=== PATIENT | male | born 2000 | race Caucasian/White ===

== ENCOUNTER 2021-10-14 18:46 | Day surgery (SDC) | payer OTHER, SELFPAY ==
[2021-10-14] MEDS ORDERED: Succinylcholine 200 MG/10 ml SYRINGE FS ONE (22:36)
[2021-10-14] MEDS ORDERED: Lidocaine 1% PF 5 ML VIAL ONE (22:36)
[2021-10-14] MEDS ORDERED: PROPOFOL 200 MG/20 ML VIAL ONE (22:36)
[2021-10-14] MEDS ORDERED: Fentanyl 100 MCG/2 ML VIAL ONE (22:47)
== END 2021-10-15 00:17 | disposition home or self-care (01) ==
LOC: ERS 18:46 → SDC/OP 22:28
PROVIDERS: ATTEND Internal Medicine Gastroenterology
PROC: 0DB58ZX Excision of Esophagus, Via Natural or Artificial Opening Endoscopic, Diagnostic (ICD-10-PCS; principal; 2021-10-14)
PROC: 0DC18ZZ Extirpation of Matter from Upper Esophagus, Via Natural or Artificial Opening Endoscopic (ICD-10-PCS; principal; 2021-10-14)
PROC: 0DB78ZX Excision of Stomach, Pylorus, Via Natural or Artificial Opening Endoscopic, Diagnostic (ICD-10-PCS; principal; 2021-10-14)
DX: T18.198A Other foreign object in esophagus causing other injury, initial encounter (principal); K22.70 Barrett's esophagus without dysplasia; K31.89 Other diseases of stomach and duodenum; K20.80 Other esophagitis without bleeding; K22.2 Esophageal obstruction; J45.909 Unspecified asthma, uncomplicated
CPT/HCPCS: 88305; 88312; 88313; 96372; 99284; J1610; J2704; J3010